=== PATIENT | male | born 1955 | race Hispanic/Latino ===

== ENCOUNTER 2017-06-27 05:33 | Emergency (ER) | payer OTHER ==
[~2017-06-27] VITALS: Ht 172.7 cm; Wt 92.3 kg
[~2017-06-27 05:33] MED LIST: ACYCLOVIR400 MG PO; ATENOLOL50 MG PO; ATORVASTATIN CA80 MG PO; BUPROPION HCL150 M2 PO; CIPRODEX OTIC7.5 ML LEFT EAR; FENOFIBRATE54 M1 PO; FLONASE16 G1 BOTH NARES; FLUNISOLIDE25 ML BOTH NARES; HYDROMORPHONE HC2 MG PO; LAXATIVE PEG 3510 GM PO; MELOXICAM15 MG PO; MORPHINE SULFAT15 M1 PO; MUCINEX600 MG PO; MUCUS ER600 MG PO; NAPROSYN500 MG PO; OMEPRAZOLE20 MG PO; PAROXETINE HCL30 MG PO; VIAGRA100 MG PO; ZYRTEC10 M2 PO
[2017-06-27 06:28] LABS: HEMATOCRIT 36.5 % (38.0-50.0); MCH 29.5 PG (29.0-34.0); MCHC 32.1 G/DL (30.0-36.0); MCV 92.2 FL (86-99); MEAN PLAT.VOLUME 9.4 uM^3 (9.0-12.4); PLATELET COUNT 216 K/uL (156-360); RBC DIS.WIDTH-SD 47.9 % (39-53); RED BLOOD COUNT 3.96 M/uL (4.00-5.50); WHITE BLOOD COUNT 8.1 K/uL (4.1-10.2)
[2017-06-27 06:35] LABS: INTER. NORMALIZED RATIO 1.2; PROTHROMBIN TIME 13.2 SEC (10.2-12.9)
[2017-06-27 06:38] LABS: PTT 33.3 SEC (25-37)
[2017-06-27 06:41] LABS: CHLORIDE 103 mEq/L (99-109); POTASSIUM 3.9 mEq/L (3.7-5.4); SODIUM 141 mEq/L (136-147)
[2017-06-27 06:41] LABS: ADD MIUA? NO; BILIRUBIN NEGATIVE; BLOOD NEGATIVE; COLOR STRAW ((YELLOW)); GLUCOSE (STRIP) NEGATIVE; KETONES NEGATIVE; LEUKOCYTES NEGATIVE; NITRITE NEGATIVE; PROTEIN (STRIP) NEGATIVE; UROBILINOGEN 0.2 MG/DL (0.2-1.0)
[2017-06-27 06:43] LABS: GLUCOSE 102 mg/dL (70-99)
[2017-06-27 06:44] LABS: ANION GAP 9 MEQ/L (2-14)
[2017-06-27 06:47] LABS: GFR ESTIMATE (CALCULATED) > 59 mL/min/
[2017-06-27 06:48] LABS: UREA NITROGEN (BUN) 22 mg/dL (9-23)
[2017-06-27 07:09] LABS: ABS NEUTROPHIL COUNT 4.6; ATYPICAL LYMPHOCYTE 10.4 %; EOSINOPHIL ABS CT 0; INSTRUMENT ABS NEUTROPHIL CT 4.4 K/uL; LYMPHOCYTES 14.8 % (15.0-45.0); MYELOCYTES 1.7 %; PLAT.SUFFICIENCY ADEQUATE; SEG.NEUTROPHILS 57.4 % (46.0-76.0)
[2017-06-27 07:24] LABS: INFLUENZA A VIRAL ANTIGEN NEGATIVE; INFLUENZA B VIRAL ANTIGEN NEGATIVE
[2017-06-27] MEDS ORDERED: ZOFRAN ODT4 MG PO (09:03)
[2017-06-27 09:20] LABS: INTERNAL CONTROL VALID? YES
[2017-06-27 12:20] VITALS: BP 161/85
== END 2017-06-27 12:42 | disposition home or self-care (01) ==
LOC: EME 05:33
PROVIDERS: Nurse Practitioner Family; Physician Assistant
DX: B34.9 Viral infection, unspecified (principal); R26.2 Difficulty in walking, not elsewhere classified; E78.5 Hyperlipidemia, unspecified; I10 Essential (primary) hypertension; Z87.891 Personal history of nicotine dependence
CPT/HCPCS: 70450; 71020; 72100; 80048; 81003; 83605; 85025; 85610; 85730; 87040; 87449; 87502; 87651 90; 99281; 99284; J7030